=== PATIENT | male | born 1985 | race Caucasian/White ===

== ENCOUNTER 2023-04-07 19:29 | Emergency (ER) | payer MEDICAID, OTHER ==
[~2023-04-07] VITALS: Ht 200.7 cm; Wt 108.9 kg
[2023-04-07] MEDS: IV NS 0.9% 1,000 ML IV ONE (21:30)
[2023-04-07] MEDS: LEVOFLOXACIN 500 MG /D5W 100ML 500 MG/100 ML PIGGYBACK IV ONE (22:00)
[2023-04-07 22:55] LABS: BASOPHILS # (AUTO) 0.1 K/uL (0.0-0.2); BASOPHILS % (AUTO) 0.6 % (0.0-2.0); EOSINOPHILS # (AUTO) 0.1 K/uL (0.0-0.7); EOSINOPHILS % (AUTO) 0.5 % (0.0-6.0); HEMATOCRIT 44 % (39-51); HEMOGLOBIN 14.7 g/dL (13.5-17.5); LYMPHOCYTES # (AUTO) 1.4 K/uL (0.8-4.8); LYMPHOCYTES % (AUTO) 7.4 % (20.0-44.0); MEAN CORPUSCULAR HEMOGLOBIN 31 PG (26.0-33.0); MEAN CORPUSCULAR HGB CONC 34 g/dl (31.0-36.0); MEAN CORPUSCULAR VOLUME 92 fL (80-96); MONOCYTES % (AUTO) 4.9 % (2.0-12.0); NEUTROPHILS % (AUTO) 86.6 % (43.0-81.0); PLATELET COUNT (AUTO) 260 K/uL (150-450); RED BLOOD CELL COUNT(AUTO) 4.75 MIL/uL (4.5-6.0); RED CELL DISTRIBUTION WIDTH 13.7 % (11.5-15.0); WHITE BLOOD COUNT (AUTO) 19.6 K/uL (4.3-11.0)
[2023-04-07 23:03] LABS: CALCIUM, SERUM 9.3 mg/dL (8.5-10.1); POTASSIUM 3.6 mmol/L (3.5-5.1)
[2023-04-07 23:09] LABS: ALBUMIN 3.4 g/dL (3.4-5.0); BILIRUBIN,TOTAL 0.6 mg/dL (0.2-1.0); TOTAL PROTEIN, SERUM 8.2 g/dL (6.4-8.2)
[2023-04-07 23:11] LABS: LACTIC ACID 1.6 mmol/L (0.4-2.0)
[2023-04-07] MEDS ORDERED: PRED50TA PO (23:43)
[2023-04-07] MEDS ORDERED: LEVO500T90 PO (23:43)
[2023-04-08 00:01] LABS: MONOTEST NEGATIVE (NEGATIVE)
[2023-04-08] MEDS ORDERED: LEVOFLOXACIN (250MG) 250 MG TABLET ONE (00:22)
[2023-04-08] MEDS: LEVOFLOXACIN (250MG) 250 MG TABLET PO ONE (00:32)
[2023-04-08 00:34] VITALS: TEMP 99.5
[2023-04-08 02:09] VITALS: BP 169/99; O2SAT 99
== END 2023-04-08 00:35 | disposition home or self-care (01) ==
LOC: ER 19:41
DX: J03.90 Acute tonsillitis, unspecified (principal); M54.2 Cervicalgia; I10 Essential (primary) hypertension; E11.9 Type 2 diabetes mellitus without complications; F17.200 Nicotine dependence, unspecified, uncomplicated; Z88.0 Allergy status to penicillin; Z88.2 Allergy status to sulfonamides; Z88.8 Allergy status to other drugs, medicaments and biological substances; Z20.822 Contact with and (suspected) exposure to COVID-19
CPT/HCPCS: 99284; 70490; 87426; 87804 ×2; 85025; 87040; 83605; 86308; 36415; 87880; 80053; J7030; 86403-TC